=== PATIENT | female | born 1955 | race Caucasian/White ===

== ENCOUNTER 2022-03-05 07:42 | Day surgery (SDC) | payer MEDICARE, OTHER ==
[~2022-03-05] VITALS: Ht 149.9 cm; Wt 37.7 kg
[~2022-03-05 07:42] MED LIST: ALBU8HFA IH; ALEN70TA80 PO; ASCO500T96 PO; ASPIRIN 81 MG CHEWABLE TABLET PO ONE; CHOL100062 PO; DIAZEPAM 5 MG TABLET PO ONE; DiphenhydrAMINE HCL 50 MG CAPSULE PO ONE; FAMO20 PO; FERR325T23 PO; LISI-658 PO; SACU1TAB PO; SIMV10TA97 PO; SODIUM CHLORIDE 0.9% 1,000 ML IV ONE; SODIUM CHLORIDE 0.9% 1,000 ML ONE; TIOT185 IH
[2022-03-05] MEDS ORDERED: ASPI-1450 PO (08:14)
[2022-03-05] MEDS ORDERED: DIAZEPAM 5 MG TABLET ONE (08:57)
[2022-03-05] MEDS ORDERED: DiphenhydrAMINE HCL 50 MG CAPSULE ONE (08:57)
[2022-03-05] MEDS ORDERED: SODIUM CHLORIDE 0.9% 1,000 ML IV ONE (10:00)
[2022-03-05 10:08] LABS: PROTHROMBIN TIME 10.6 SEC (9.4-11.6)
[2022-03-05] MEDS ORDERED: IOHEXOL 300 MG/ML 100 ML VIAL ONE (10:49)
[2022-03-05] MEDS ORDERED: SODIUM BICARBONATE 50 MEQ/50 ML VIAL ONE (10:49)
[2022-03-05] MEDS ORDERED: LIDOCAINE/PF 1% 30 ML VIAL ONE (10:49)
[2022-03-05] MEDS ORDERED: HEPARIN SODIUM 1000 UNITS/NS 1,000 ML ONE (10:50)
[2022-03-05 11:08] VITALS: BP 119/58
[2022-03-05] MEDS ORDERED: MIDAZOLAM HCL 2 MG/2 ML VIAL ONE (11:15)
[2022-03-05] MEDS ORDERED: FentaNYL CITRATE PF 100 MCG/2 ML VIAL ONE (11:15)
[2022-03-05] MEDS ORDERED: HEPARIN SODIUM 1000 UNITS/NS 1,000 ML IARTER ONE (11:30)
[2022-03-05] MEDS ORDERED: LIDOCAINE 1% 30 ML/SOD BICARB 8.4% 4 ML SQ ONE (11:30)
[2022-03-05] MEDS ORDERED: MIDAZOLAM HCL 2 MG/2 ML VIAL IVP ONE (11:30)
[2022-03-05] MEDS ORDERED: IOHEXOL 300 MG/ML 100 ML VIAL IARTER ONE (11:30)
[2022-03-05] MEDS ORDERED: FentaNYL CITRATE PF 100 MCG/2 ML VIAL IVP ONE (11:30)
[2022-03-05 11:52] VITALS: BP 128/59
[2022-03-05] MEDS ORDERED: DIAZEPAM 5 MG TABLET PO ONE (12:00)
[2022-03-05] MEDS ORDERED: DiphenhydrAMINE HCL 50 MG CAPSULE PO ONE (12:00)
[2022-03-05] MEDS ORDERED: ASPIRIN 81 MG CHEWABLE TABLET PO ONE (12:00)
== END 2022-03-05 16:05 | disposition home or self-care (01) ==
LOC: CATHLAB 07:42
PROVIDERS: ATTEND Internal Medicine Interventional Cardiology
DX: R06.02 Shortness of breath (principal); I25.10 Atherosclerotic heart disease of native coronary artery without angina pectoris; I11.0 Hypertensive heart disease with heart failure; I50.20 Unspecified systolic (congestive) heart failure; I42.9 Cardiomyopathy, unspecified; E78.5 Hyperlipidemia, unspecified; E11.9 Type 2 diabetes mellitus without complications; J44.9 Chronic obstructive pulmonary disease, unspecified; F17.210 Nicotine dependence, cigarettes, uncomplicated; Z20.822 Contact with and (suspected) exposure to COVID-19; Z79.82 Long term (current) use of aspirin; Z79.899 Other long term (current) drug therapy; Z91.011 Allergy to milk products; Z98.890 Other specified postprocedural states
CPT/HCPCS: 93458; 85610; 85730; 36415; 99152; 93005; C1760; J3010; J1644; J3490 ×2; J2250; J7030; Q9967